=== PATIENT | female | born 1935 | race Caucasian/White ===

== ENCOUNTER 2016-08-09 10:08 | Outpatient (CLI) | payer OTHER, MEDICAID | END 2016-08-09 20:02 | disposition home or self-care (01) | LOC: SRD 10:08 | PROVIDERS: ATTEND Internal Medicine | DX: I70.90 Unspecified atherosclerosis (principal); M47.899 Other spondylosis, site unspecified; R06.89 Other abnormalities of breathing | CPT/HCPCS: 71020-TC; 74000-TC ==